=== PATIENT | female | born 2000 | race Two or more races ===

== ENCOUNTER 2023-09-30 17:09 | Emergency (ER) | payer OTHER, SELFPAY ==
--- NOTE | ~2023-09-30 | CT_ITS ---
EXAMINATION: CT cervical spine wo con DATE: 09/30/2023 19:09 INDICATION: neck stiffness/pain TECHNIQUE: Computed tomography (CT) of the cervical spine was performed without intravenous contrast. Automated exposure control and iterative reconstruction technique were employed. The dose-length pro duct was 916.58 mGy-cm. COMPARISON: None. FINDINGS: Vertebral Body Alignment: Intact. Reversal of the normal cervical lordosis which can occur with posit ioning or muscle spasm. Craniocervical and atlantoaxial alignment: No significant degenerative change. Alignment intact. Osseous structures/fracture: No evidence of a lytic or blastic process in the visualized spine. No e vidence of acute fracture. Cervical soft tissues: The paraspinal soft tissues planes are maintained. Residual thymic tissue. Enl arged upper anterior cervical chain lymph nodes. Degenerative changes: No significant degenerative changes. IMPRESSION: No acute fracture or traumatic malalignment in the cervical spine. Upper anterior cervical chain lymphadenopathy. Reviewed, dictated and finalized at location K.
--- NOTE | ~2023-09-30 | CT_ITS ---
EXAMINATION: CT brain wo con DATE: 09/30/2023 18:54 INDICATION: migraine HICKS . TECHNIQUE: Computed tomography (CT) of the head was performed without intravenous contrast. The mA wa s adjusted according to patient size. Iterative reconstruction technique was employed. The dose-lengt h product was 681.00 mGy-cm. COMPARISON: None. FINDINGS: No acute intracranial hemorrhage or extra-axial fluid collection. No hydrocephalus, mass, or herniation. No acute ischemic infarct. Unremarkable dural venous sinus attenuation. No acute osseous abnormality. Retention cyst/polyp in the right sphenoid sinus, the remaining aerated spaces are clear. IMPRESSION: No acute intracranial process. Reviewed, dictated and finalized at location K.
[2023-09-30 17:20] VITALS: BP 144/56; PULSE 90; RESP 16; TEMP 36.4; O2SAT 98
--- NOTE | 2023-09-30 18:02 | ED.HA ---
HPI - Headache General Chief Complaint: Headache <Lino Fink APRN - Last Filed: 09/30/23 18:08> Stated Complaint: migraine, eye pain, neck pain <Lino Fink APRN - Last Filed: 09/30/23 18:08> Time Seen by Provider: 09/30/23 18:00 <Lino Fink APRN - Last Filed: 09/30/23 18:08> Focused HPI: Nina is a 22-year-old female patient presenting to the ER today with complaints of right-sided headache, pressure and pain behind her eyes, and neck stiffness. She reports this has been going on for the past 3 days. Denies any known fever or chills. Denies any visual changes. Has recently seen her eye doctor 3 months ago and got a new prescription for eye wear. Denies any chest pain or shortness of breath. Blood pressure is 144/56 in the ER today. GENERAL: Well-appearing, well-nourished, and in no acute distress. HEAD: Normocephalic, atraumatic. CHEST: Clear to auscultation. No respiratory distress. HEART: Regular rate and rhythm. NEURO: Alert and oriented x3. Patient screened in triage and initial orders placed. Additional care and disposition to be based upon diagnostic testing and treatment. <Lino Fink APRN - Last Filed: 09/30/23 18:08> Source: patient <Lino NAVIN Fink - Last Filed: 09/30/23 18:08> Mode of arrival: ambulatory <Lino Fink APRN - Last Filed: 09/30/23 18:08> Limitations: no limitations <Lino Fink APRN - Last Filed: 09/30/23 18:08> History of Present Illness HPI Narrative: This is a 22-year-old female with no pertinent past medical history who presents to the [facility] for evaluation of headache she describes as a pressure sensation behind her right eye and radiating down her neck. She sometimes gets an aura when the headaches begin in she notices it more so in the morning when she wakes up. We or is related some ocular disturbances out of her right eye but more short-lived and self-limited. She has had her headache sensation for last 3 days. She has a history of migraine source up does not see a neurologist or take any medications aside from Tylenol at home. Denies any chance of and has a Nexplanon. No trauma, recent injuries, upper respiratory symptoms. No weakness, fatigue. She is otherwise in her normal state of health. <Kristian Boo MD - Last Filed: 09/30/23 22:56> Related Data Allergies/Adverse Reactions: Allergies Allergy/AdvReac Type Severity Reaction Status Date / Time No Known Allergies Allergy Verified 09/30/23 17:10 <Lino Fink APRN - Last Filed: 09/30/23 18:08> Review of Systems Review of Systems: As reviewed above in HPI <Kristian Boo MD - Last Filed: 09/30/23 22:56> PMFSH Comments At the time of my signature, I reviewed and agree with the nursing past medical, surgical, social, and family history. There is no relevant family history pertinent to the patient complaint. <Lino Fink APRN - Last Filed: 09/30/23 18:08> Exam Narrative: GENERAL: [Well-appearing, well-nourished, and in no acute distress.] HEAD: [Normocephalic, atraumatic.] EYES: [PERRLA and EOMI.] ENT: Nares clear, no rhinorrhea or epistaxis. Mucous membranes moist. NECK: Supple. CHEST: [Clear to auscultation. No respiratory distress.] HEART: [Regular rate and rhythm]. No murmur heard. [Normal peripheral pulses.] ABDOMEN: [Soft, nondistended], [nontender], [No rigidity or guarding] EXTREMITIES: Normal range of motion. [No edema.] SKIN: Warm, dry, no rash. NEURO: [No focal deficits]. Alert and oriented [x3.] No ataxia in the arms or legs, full strength in both arms and legs. Extraocular movements are full. Pupils are equal reactive to light. Cranial nerves 2-12 are intact. PSYCH: [Normal mood and affect.] <Kristian Boo MD - Last Filed: 09/30/23 22:56> Course Course Emergency Course: Portions of this record may have been created
[2023-09-30] MEDS: PROCHLORPERAZINE MALEATE 5 MG TABLET 10 MG PO (21:12)
[2023-09-30] MEDS: diphenhydrAMINE HCl CAP 25 MG CAPSULE PO (21:12)
[2023-09-30] MEDS: ACETAMINOPHEN 500 MG TABLET 1000 MG PO (21:12)
[2023-09-30] MEDS: dexAMETHasone SOD PHOS INJ 10 MG/ML 1 ML VIAL IM (21:13)
[2023-09-30 21:14] VITALS: BP 133/93; PULSE 78; RESP 17; O2SAT 99
[2023-09-30 22:21] LABS: BEDSIDEPREGUCG Negative
[2023-09-30 23:18] VITALS: BP 129/88; PULSE 88; RESP 16; TEMP 36.6; O2SAT 97
== END 2023-09-30 23:19 | disposition home or self-care (01) ==
PROVIDERS: Nurse Practitioner Family; Emergency Provider Student in an Organized Health Care Education/Training Program
DX: G43.909 Migraine, unspecified, not intractable, without status migrainosus (principal); G44.009 Cluster headache syndrome, unspecified, not intractable
CPT/HCPCS: 70450; 72125; 81025; 95864; 96372; 99284; A9270; J1100